=== PATIENT | female | born 1955 | race Caucasian/White ===

== ENCOUNTER → 2021-10-18 | Outpatient (CLI) | payer MEDICARE, BC | LOC: ECHO 11:48 → HEART 5 11:48 → ECHO 13:00 → MRI 14:00 | DX: R06.02 Shortness of breath (principal); R51.9 Headache, unspecified; R29.2 Abnormal reflex; J30.9 Allergic rhinitis, unspecified; I08.3 Combined rheumatic disorders of mitral, aortic and tricuspid valves | CPT/HCPCS: ECHO; 70551; 93306 ==

== ENCOUNTER → 2022-05-12 | Outpatient (CLI) | payer MEDICARE, BC | LOC: RAD 14:03 | DX: M51.16 Intervertebral disc disorders with radiculopathy, lumbar region (principal); M50.322 Other cervical disc degeneration at C5-C6 level | CPT/HCPCS: 72040; 72100 ==